=== PATIENT | male | born 1950 | race Caucasian/White ===

== ENCOUNTER 2021-11-06 04:07 | Outpatient (CLI) | payer MEDICARE, SELFPAY ==
[2021-11-06 13:03] LABS: Source Nasal/Nares
[2021-11-06 18:41] LABS: COVID-19 PCR Positive (Negative)
== END 2021-11-06 04:08 | disposition home or self-care (01) ==
LOC: LBO 04:07
PROVIDERS: PCP Neuromusculoskeletal Medicine & OMM; Visit Provider Ophthalmology
DX: Z20.822 Contact with and (suspected) exposure to COVID-19 (principal)
CPT/HCPCS: 87635

== ENCOUNTER 2021-12-11 10:09 | Outpatient (CLI) | payer MEDICARE, SELFPAY ==
[2021-12-11 12:09] LABS: Source Nasal/Nares
[2021-12-11 14:55] LABS: COVID-19 PCR Negative (Negative)
== END 2021-12-11 10:10 | disposition home or self-care (01) ==
PROVIDERS: PCP Neuromusculoskeletal Medicine & OMM; Visit Provider Ophthalmology
DX: Z20.822 Contact with and (suspected) exposure to COVID-19 (principal)
CPT/HCPCS: 87635; U0005

== ENCOUNTER 2021-12-14 11:51 | Day surgery (SDC) | payer MEDICARE, SELFPAY ==
--- NOTE | 2021-12-14 11:57 | ANES.PREOP_ITS ---
General Info Date of Service Date Performed: 12/14/21 Height: 5 ft 7 in Weight: 72.575 kg Body Mass Index (BMI): 25.0 Surgical Procedure: Operation Date: 12/14/21 15:40 Proposed Procedure Side Surgeon p Cataract Extraction with IOL Implant w/Glaucoma Stent Right Casey Brar MD Meds Allergies and Home Medications Allergies Allergy/AdvReac Type Severity Reaction Status Date / Time No Known Allergies Allergy Unverified 12/10/21 12:22 Home Medication Medication Instructions Recorded amlodipine 10 mg tablet 10 mg PO DAILY 11/05/21 aspirin 81 mg capsule,delayed 81 mg PO DAILY 11/05/21 release dorzolamide 2 % eye drops 1 drp OPHTHALMIC (EYE) BID 11/05/21 latanoprost 0.005 % eye drops 1 drp OPHTHALMIC (EYE) HS 11/05/21 lisinopril 40 mg tablet 40 mg PO DAILY 11/05/21 metoprolol succinate 100 mg 100 mg PO DAILY 11/05/21 tablet,extended release 24 hr metronidazole 0.75 % topical gel 1 applic TOPICAL BID 11/05/21 simvastatin 20 mg tablet 20 mg PO HS 11/05/21 Current Visit Medications: Current Medications Generic Name Dose Route Start Last Admin Trade Name Freq PRN Reason Stop Dose Admin Acetaminophen 1,000 mg 12/14/21 06:00 Acetaminophen 500 Mg Tab PO Q4H PRN PRN Miscellaneous Medication 0 ml 12/14/21 06:00 Prednisolone 1%, Moxifloxacin 0.5%, Nepafenac 0.1% 5ml Btl OD DIRECTED [facility] Miscellaneous Medication 0 ml 12/14/21 06:00 Tropicam./Phenyleph. (1/2.5%) 5 Ml Btl OD DIRECTED [facility] Tetracaine HCl 0 ml 12/14/21 06:00 Tetracaine 0.5% 4 Ml Btl OD DIRECTED [facility] PFSH Active Problems Active Problems: Problem Status Onset Code Nuclear sclerotic cataract of right eye H25.11 Posterior subcapsular age-related cataract, right eye H25.041 Medical History Medical History (Updated 12/14/21 @ 12:34 by Nicole Robertson) COVID 11/06/21 Asymptomatic Essential hypertension Glaucoma History of postoperative nausea and vomiting Neuropathy due to type 2 diabetes mellitus Rosacea Medical History Comments:: Patient reports PONV in the past. Takes no diabetes medication. Surgical History Surgical History History of colonoscopy History of hernia repair Tobacco Smoking/Tobacco Use Status: Former Tobacco Use Alcohol Alcohol Intake: never Substance Use Substance use type: does not use Vital Signs and Lab Results Vital Signs Most Recent Vital Signs in EMR: Temp Pulse Resp BP Pulse Ox 36.3 C L 64 16 170/81 H 98 12/14/21 12:31 12/14/21 12:31 12/14/21 12:31 12/14/21 12:31 12/14/21 12:31 Lab Results Blood Type / Crossmatch: No Data to Display Complete Blood Count: No Data to Display Complete Metabolic Panel: No Data to Display Liver Function Panel: No Data to Display Coagulation Panel: No Data to Display Cardiac Panel: No Data to Display Arterial Blood Gas: No Data to Display Venous Blood Gas: No Data to Display Pancreas Panel: No Data to Display Thyroid Panel: No Data to Display Infectious Disease: Coronavirus (COVID-19)(PCR) Negative (Negative) 12/11/21 09:00 12/11/21 Coronavirus 2019 Source Nasal/Nares 12/11/21 09:00 12/11/21 Blood Cultures: No Data to Display Toxicology Panel: No Data to Display Anesthesia Assessment and Plan Anesthesia History Personal History: PONV Family History: No Family History of Anesthesia Complications Exercise Tolerance Exercise Tolerance: Metabolic Equivalents>4 Cardiac & Pulmonary Exam Cardiac Exam: Normal S1/S2 Heart Sounds Pulmonary Exam: Clear Bilateral Breath Sounds Implantable Cardiac Device Does patient have a Pacemaker or an ICD?: No Airway Exam Known Difficult Airway: No Mallampati Class: 3 Mouth Opening: Narrow (< 3cm) Thyromental Distance: Less than 3 cm Neck Range of Motion: Full ROM Neck Circumference: Normal Teeth Condition: Edentulous ASA Classification ASA Score: ASA 2 Emergency Case?: No NPO Status NPO Status: NPO Clears >2 hours, Solids >8 hours Anesthesia Plan Resuscitation Status: Full Code Anesthesia Technique: MAC Anesthesia Airway Planned: Natural Airway Monitors Used: Standard Monitors Preoperative Comments:: 71 yo male for cataract. Sig PMHx: HTN (amlodipine/lisinopril/metoprolol), neuropathy, former smoker. Plan: no mko.
[2021-12-14] MEDS: Tropicam./Phenyleph. (1/2.5%) 5 ML BTL OD ×3 (12:30→12:42)
[2021-12-14 12:31] VITALS: BP 170/81; PULSE 64; RESP 16; TEMP 36.3; O2SAT 98
[2021-12-14 13:03] VITALS: BMI 25.0
--- NOTE | 2021-12-14 13:44 | HPE_ITS ---
Assessment and Plan Assessment and plan (1) Nuclear sclerotic cataract of right eye: Status: Acute Assessment and plan: Assessment: Visually significant cataract of the right eye. Plan: Cataract extraction with lens implantation (2) Posterior subcapsular age-related cataract, right eye: Status: Acute Assessment and plan: Assessment: Visually significant cataract of the right eye. Plan: Cataract extraction with lens implantation (3) Primary open-angle glaucoma, right eye, severe stage: Status: Acute Assessment and plan: Primary open-angle glaucoma, right eye, severe stage, on 2 medications. Plan: Trabecular micro-bypass stent of the right eye at the time of cataract surgery. History of Present Illness History of Present Illness Chief Complaint: Progressive decreased vision, right eye, as well as glaucoma right eye Narrative: The patient is a 71-year-old male with history of progressive decreased vision in both eyes, right eye worse than left. He also has a history of severe stage primary open-angle glaucoma, currently managed on 2 topical medications. He has a significant nuclear/posterior subcapsular cataract in the right eye with visual acuity of 20/100. The option of cataract surgery was offered to the patient and he wished to proceed. Review of Systems All systems reviewed & are unremarkable except as noted in HPI and below PFSH All Active Problems (Updated 12/14/21 @ 13:50 by Casey Brar MD) Primary open-angle glaucoma, right eye, severe stage (Acute) Nuclear sclerotic cataract of right eye (Acute) Posterior subcapsular age-related cataract, right eye (Acute) Medical History COVID 11/06/21 Asymptomatic Essential hypertension Glaucoma History of postoperative nausea and vomiting Neuropathy due to type 2 diabetes mellitus Rosacea Surgical History History of colonoscopy History of hernia repair Social History Smoking/Tobacco Use Status: Former Tobacco Use Quit Date: 10/10/13 Smoking risk assessment performed?: Yes Alcohol Intake: never Substance use type: does not use Do you feel safe at home: Yes Do you feel safe in your relationship?: Yes Meds Allergies and Home Medications Allergies Allergy/AdvReac Type Severity Reaction Status Date / Time No Known Allergies Allergy Unverified 12/10/21 12:22 Home Medications Medication Instructions Recorded Confirmed Type amlodipine 10 mg tablet 10 mg PO DAILY 11/05/21 12/14/21 History aspirin 81 mg capsule,delayed 81 mg PO DAILY 11/05/21 12/14/21 History release dorzolamide 2 % eye drops 1 drp OPHTHALMIC (EYE) BID 11/05/21 12/14/21 History latanoprost 0.005 % eye drops 1 drp OPHTHALMIC (EYE) HS 11/05/21 12/14/21 History lisinopril 40 mg tablet 40 mg PO DAILY 11/05/21 12/14/21 History metoprolol succinate 100 mg 100 mg PO DAILY 11/05/21 12/14/21 History tablet,extended release 24 hr metronidazole 0.75 % topical gel 1 applic TOPICAL BID 11/05/21 12/14/21 History simvastatin 20 mg tablet 20 mg PO HS 11/05/21 12/14/21 History Exam Eyes Other: Corrected visual acuity is 20/100 right eye, 20/20 left eye. Intraocular pressure is 12 right eye, 10 left eye. Extraocular motility is normal. Slit- lamp examination reveals moderate bilateral nuclear cataracts with 1-2+ posterior subcapsular cataract in the right eye, 1+ posterior subcapsular cataract in the left eye. Pupils dilated to 4.5 mm OU. Disc cupping is 0.85 OU with normal vessels, macula, peripheral retina and vitreous. Resp Auscultation: clear to auscultation bilaterally Cardio Rate: regular rate Rhythm: regular rhythm Results Last Vital Signs Temp 36.3 C L 12/14/21 12:31 Pulse 64 12/14/21 12:31 Resp 16 12/14/21 12:31 BP 170/81 H 12/14/21 12:31 Pulse Ox 98 12/14/21 12:31
[2021-12-14] MEDS: Tetracaine 0.5% 4 ML BTL OD (13:53)
[2021-12-14] MEDS: Duovisc Viscoelastic System EACH 1 EACH (14:01)
[2021-12-14] MEDS: Balanced Salt Soln.-PLUS 500 ML BAG (14:01)
[2021-12-14] MEDS: Lidocaine 2% Jelly 6 ML SYR (14:02)
[2021-12-14] MEDS: Povidone-Iodine Ophth 30 ML BTL (14:03)
[2021-12-14 14:26] VITALS: BP 177/87; PULSE 77; RESP 16; TEMP 36.6; O2SAT 96
--- NOTE | 2021-12-14 14:29 | W.PM.DSUDISC ---
Discharge Plan Disposition Patient Disposition: HOME Condition: Good Discharge Details Attending Provider: Casey Brar Primary Care Provider: [facility] Meds and New Rx's Prescriptions: No Action latanoprost 0.005 % drops 1 drp ophthalmic (eye) HS 0RF Label Comments: INSTILL 1 DROP IN BOTH EYES EVERY DAY AT BEDTIME metoprolol succinate 100 mg tablet extended release 24 hr 100 mg PO DAILY 0RF Label Comments: TAKE 1 TABLET BY MOUTH EVERY DAY aspirin 81 mg Capsule,Delayed Release(Dr/Ec) 81 mg PO DAILY 0RF amlodipine 10 mg tablet 10 mg PO DAILY 0RF Label Comments: TAKE 1 TABLET BY MOUTH EVERY DAY simvastatin 20 mg tablet 20 mg PO HS 0RF Label Comments: TAKE 1 TABLET BY MOUTH AT BEDTIME lisinopril 40 mg tablet 40 mg PO DAILY 0RF Label Comments: TAKE 1 TABLET BY MOUTH EVERY DAY IN THE MORNING metronidazole 0.75 % gel 1 applic TOPICAL BID 0RF Label Comments: APPLY TOPICALLY TO THE AFFECTED AREA TWICE DAILY FOR ACNE ROSACEA dorzolamide 2 % drops 1 drp ophthalmic (eye) BID 0RF Label Comments: INSTILL 1 DROP IN BOTH EYES TWICE DAILY Discharge Instructions Stand Alone Forms: Post-op Topical Cataract, Press Ganey (DSU) Discharge Orders Discharge Orders: Discharge Order (Routine); Ordered 12/14/21 Ordered By: Casey Brar DS: Diagnosis Discharge Diagnosis (1) Nuclear sclerotic cataract of right eye: Status: Resolved (2) Posterior subcapsular age-related cataract, right eye: Status: Resolved (3) Primary open-angle glaucoma, right eye, severe stage: Status: Chronic
--- NOTE | 2021-12-14 14:29 | W.ANESPOSTOP ---
Postoperative Evaluation Date, Time and Location Date Performed: 12/14/21 Time Performed: 14:29 Patient Location: Day Surgery Unit Vital Signs Most Recent Imported Vital Signs: Most Recent Vital Signs Temp Pulse Resp BP Pulse Ox 36.3 C L 64 16 170/81 H 98 12/14/21 12:31 12/14/21 12:31 12/14/21 12:31 12/14/21 12:31 12/14/21 12:31 Most Recent Manually Entered Vital Signs: Adult Blood Pressure: 177/87 Heart Rate: 71 Respirations: 12 Oxygen Saturation (%): 99 Temperature (C): 36.3 C Pain Score (0-10 Scale): 0 Pain Score Most Recent Pain Score: Most Recent Pain Score Pain Level 0 12/14/21 12:31 Assessment Mental Status: Awake (Alert & Oriented to Patient Baseline) Airway and Respiratory Function: Patent airway with normal (patient baseline) respiratory exam Cardiovascular Function: Hemodynamically Stable Hydration Status: Adequately Hydrated Nausea & Vomiting: No Nausea or Vomiting Pain: Pt. Denies Any Pain Peripheral Nerve Block: Patient did not receive a nerve block
[2021-12-14 14:30] VITALS: BP 177/87; PULSE 71; RESP 12; TEMPC 36.3; O2SAT 99
--- NOTE | 2021-12-14 14:30 | W.PM.OP ---
Date of service: 12/14/21 Time of Service: 14:30 Operative Note Operative Note DATE OF PROCEDURE: 12/14/21 PRE-OP DIAGNOSIS: Nuclear/posterior subcapsular cataract, right eye Primary open-angle glaucoma, right eye, severe stage POST-OP DIAGNOSIS: same PROCEDURE: 1. Cataract extraction using phacoemulsification with intraocular lens implant, right eye 2. Insertion of multiple anterior segment aqueous drainage devices (Glaukos iStent inject x 2) into trabecular meshwork, right eye SURGEON: Casey Brar ANESTHESIA TYPE: Local By Surgeon and MAC Refer to Anesthesia Record PATHOLOGY: none sent COMPLICATIONS: None Patient was transported to: same day Patient's condition: stable Implants: 1. [employer] / [employer] Tecnis ZCB00 intraocular lens 2. Glaukos iStent inject trabecular micro-bypass stent x 2 Indications: 1. Progressive decreased vision due to cataract, right eye 2. Primary open angle glaucoma, right eye Procedure Description: CATARACT SURGERY OPERATIVE REPORT PREOPERATIVE DIAGNOSIS: Nuclear/posterior subcapsular cataract, right eye Primary open-angle glaucoma, right eye, severe stage POSTOPERATIVE DIAGNOSIS: Same OPERATION: 1. Cataract extraction using phacoemulsification with posterior chamber intraocular lens implant, right eye. 2. Insertion of multiple anterior segment aqueous drainage devices (Glaukos iStent inject x 2) into trabecular meshwork, right eye IOL: IOL Field Care Advocate/Model: [employer] / VARSHA Tecnis ZCB00 IOL Power: + 16.0 diopters IOL Serial Number: [id number] Optic Diameter: 6.0mm Haptic/Overall Diameter: 13.0mm PHACO INFO: Antonio [employer] Vision System with OZil and Active [employer]uidics Cumulative Dispersed Energy (CDE): 14.63 seconds TRABECULAR MICRO-BYPASS STENT INFO: Glaukos iStent inject x 2 Reference Number: [id number] Serial Number: [id number] SURGEON: Casey Brar MD, MONTSE ANESTHESIA: Monitored Anesthesia Care (MAC), with local sub-tenon's anesthetic infiltration COMPLICATIONS: None SPECIMENS: None INDICATIONS FOR PROCEDURE: The patient is a 71-year-old gentleman with history of progressive decreased vision in his right eye secondary to the development of nuclear/posterior subcapsular cataract. He also has severe stage primary open-angle glaucoma, currently managed on 2 medications. The option of cataract surgery was offered to the patient and he wished to proceed. In addition, he is undergoing glaucoma stent implantation to help manage his intraocular pressure. PROCEDURE: The correct surgical eye was identified and marked as the right eye and the pupil was dilated in the preoperative area using mydriatics and cycloplegics. The dilated pupil size was 6.0 mm. He elected to proceed without oral sedation. The patient was brought to the operating room where cardiopulmonary monitoring was instituted and surgical time-out was performed, confirming the correct operative eye and IOL power. Topical anesthesia was administered and ophthalmic povidone-iodine 5% was instilled into the conjunctival fornices. Lidocaine gel was applied to the cornea and the tawanda-ocular area was prepped with Betadine 10% solution and draped in the usual sterile fashion for intraocular surgery, including an aperture drape. A Tegaderm transparent film dressing was cut in half and used to cover the lashes and lid margins. Care was taken to sequester the lashes and lid margins under the Tegaderm dressing. A lid speculum was placed between the lids of the operative eye and the Antonio [employer] operating microscope was maneuvered into position. Sharon scissors were then used to make a conjunctival buttonhole approximately 6mm posterior to the limbus in the inferonasal quadrant. Blunt dissection was carried out to expose bare sclera, and a blunt-tipped sub-tenon?s anesthesia cannula was introduced and passed posteriorly along the globe where non-preserved plain lidocaine was injected into posterior sub-Tenon?s space. A sideport knife was used to make a paracentesis port inferiortemporally. Intraocular phenylephrine/lidocaine was injected into the anterior chamber. The anterior chamber was then filled with viscoelastic. A 2.4mm keratome knife was used to create a half-thickness groove at the limbus and then to construct a three-plane near-clear corneal tunnel extending 2.0mm into clear cornea in the superiortemporal position. . A flap was raised on the anterior capsule and capsulorhexis forceps were used to complete a continuous curvilinear capsulorhexis of 5.0 mm. Balanced salt solution was then used to perform cortical cleaving hydrodissection and nuclear hydrodelineation until the lens could be freely rotated within the capsular bag. The lens nucleus was then disassembled and removed within the capsular bag and iris plane using phacoemulsification. Residual cortical material was removed using the 45-degree angled silicone I/A tip with 0.3mm port. The posterior capsule was carefully polished to remove as much residual lens epithelial cells as safely possible. The capsular bag was then inflated and the anterior chamber deepened with viscoelastic. The lens implant described above was inserted into the capsular bag using the VARSHA [place] Injector. A Kuglen hook was used to dial the IOL into position. The anterior chamber was then slightly over-filled with viscoelastic. The microsope and the patient's head were tilted into the ideal position for viewing of the anterior chamber angle. Viscoelastic was placed on the cornea followed by a surgical gonionlens, and the anterior chamber angle landmarks were identified. The [facility] iStent inject handpiece was introduced into the anterior chamber and the insertion sleeve was retracted once the injector was distal to the pupillary margin. The trocar was advanced through the central portion of the trabecular meshwork and into the back wall of Schlemm's canal in the inferonasal quadrant, with care taken to ensure the micro-insertion tube was perpendicular to the trabecular meshwork. The trabecular meshwork was lightly dimpled and the stent was injected without difficulty. The same procedure was then performed in the superiornasal quadrant. Both stents were then examined and noted to be in good position within the trabecular meshwork.The microscope and the patients head were returned to the normal coaxial position. Viscoelatic was then removed from the anterior chamber using the I/A handpiece. The lens implant was noted to center nicely within the capsular bag. The incisions were stromally hydrated, and the anterior chamber was reformed using BSS. Then 0.4cc of moxifloxacin 1.5mg/ml were injected into the capsular bag and anterior chamber. The incisions were checked with a Weck spear and found to be secure. Several drops of ophthalmic povidone-iodine 5% were then applied to the eye followed by two drops of Imprimis combination prednisolone/moxifloxacin/nepafenac solution. The drapes were removed and a clear plastic protective eye shield was placed over the eye. The patient was then returned to [facility] Day Surgery in stable condition.
== END 2021-12-14 14:47 | disposition home or self-care (01) ==
PROVIDERS: PCP Neuromusculoskeletal Medicine & OMM; Visit Provider Ophthalmology
PROC: (CPT 66984; principal; 2021-12-14 15:30)
DX: H25.041 Posterior subcapsular polar age-related cataract, right eye (principal); H40.1113 Primary open-angle glaucoma, right eye, severe stage; I10 Essential (primary) hypertension; E11.42 Type 2 diabetes mellitus with diabetic polyneuropathy
CPT/HCPCS: 66984; 66991; V2632; C1783

== ENCOUNTER 2021-12-28 09:47 | Day surgery (SDC) | payer MEDICARE, SELFPAY ==
--- NOTE | 2021-12-28 07:07 | HPE_ITS ---
Assessment and Plan Assessment and plan (1) Nuclear sclerotic cataract of left eye: Status: Acute Assessment and plan: Assessment: Visually significant cataract of the left eye. Plan: Cataract extraction with lens implantation of the left eye (2) Posterior subcapsular age-related cataract of left eye: Status: Acute Assessment and plan: Assessment: Visually significant cataract of the left eye. Plan: Cataract extraction with lens implantation of the left eye (3) Primary open angle glaucoma of left eye, severe stage: Status: Acute Assessment and plan: Assessment: Primary open-angle glaucoma, left eye, severe stage, controlled on 2 topical medications. Plan: Trabecular microbypass glaucoma stent of the left eye at the time of cataract surgery History of Present Illness History of Present Illness Chief Complaint: Progressive decreased vision, left eye Narrative: The patient is a 71-year-old male with history of severe stage primary open- angle glaucoma in both eyes. He developed symptomatic bilateral nuclear and posterior subcapsular cataract. He was significantly symptomatic symptomatic that he desired cataract surgery and attempt to improve and maximize his vision. He has undergone cataract surgery in the right eye on 12/14/2021 with implantation of glaucoma stent as well. Postoperatively, uncorrected visual acuity has improved to 20/30 in the right eye. He now presents for cataract surgery in the left eye. In addition, the option of glaucoma stent procedure in the left eye was offered as well and he wished to proceed with that. Glaucoma is currently managed on 2 topical medications. 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 mellitus Rosacea Surgical History (Updated 12/28/21 @ 10:06 by Nicole Robertson) History of colonoscopy History of hernia repair Hx of cataract removal with insertion of prosthetic lens Social History Smoking/Tobacco Use Status: Former Tobacco Use Quit Date: 10/10/13 Smoking risk assessment performed?: Yes Alcohol Intake: never Substance use type: does not use Do you feel safe at home: Yes Do you feel safe in your relationship?: Yes Meds Allergies and Home Medications Allergies Allergy/AdvReac Type Severity Reaction Status Date / Time No Known Allergies Allergy Unverified 12/28/21 10:07 Home Medications Medication Instructions Recorded Confirmed Type amlodipine 10 mg tablet 10 mg PO DAILY 11/05/21 12/28/21 History aspirin 81 mg capsule,delayed 81 mg PO DAILY 11/05/21 12/28/21 History release dorzolamide 2 % eye drops 1 drp OPHTHALMIC (EYE) BID 11/05/21 12/28/21 History latanoprost 0.005 % eye drops 1 drp OPHTHALMIC (EYE) HS 11/05/21 12/28/21 History lisinopril 40 mg tablet 40 mg PO DAILY 11/05/21 12/28/21 History metoprolol succinate 100 mg 100 mg PO DAILY 11/05/21 12/28/21 History tablet,extended release 24 hr metronidazole 0.75 % topical gel 1 applic TOPICAL BID 11/05/21 12/25/21 History simvastatin 20 mg tablet 20 mg PO HS 11/05/21 12/28/21 History Exam Eyes Eyelids: eyelids normal Sclera: sclerae normal Cornea: corneas normal Pupils: PERRL EOM: EOM intact bilaterally Other: Uncorrected visual acuity measures 20/30 in the right eye, 20/60 in the left eye. Intraocular pressure is 12 right eye, 16 left eye. Extraocular motility is normal. Corneas are thin at less than 500 ?m in thickness. In the right eye there is a well-positioned PCIOL with clear posterior capsule. In the left eye, a 1+ posterior subcapsular cataract is present. Pupils dilate to 4.5 mm OU. Fundus examination reveals cup-to-disc ratio of 0.85 OU with normal vessels, macula, peripheral retina and vitreous. Resp Auscultation: clear to auscultation bilaterally Cardio Rate: regular rate Rhythm: regular rhythm
[2021-12-28 10:11] VITALS: BP 161/91; PULSE 69; RESP 16; TEMP 36.2; O2SAT 99
[2021-12-28] MEDS: Tropicam./Phenyleph. (1/2.5%) 5 ML BTL OS ×3 (10:11→10:21)
[2021-12-28 10:27] VITALS: BMI 27.1
--- NOTE | 2021-12-28 10:27 | W.ANESPRE ---
General Info Date of Service Date Performed: 12/28/21 Height: 5 ft 7 in Weight: 78.7 kg Body Mass Index (BMI): 27.1 Surgical Procedure: Operation Date: 12/28/21 12:40 Proposed Procedure Side Surgeon p Cataract Extraction with IOL Implant w/Glaucoma Stent Left Casey Brar MD Meds Allergies and Home Medications Allergies Allergy/AdvReac Type Severity Reaction Status Date / Time No Known Allergies Allergy Unverified 12/28/21 10:07 Home Medication Medication Instructions Recorded amlodipine 10 mg tablet 10 mg PO DAILY 11/05/21 aspirin 81 mg capsule,delayed 81 mg PO DAILY 11/05/21 release dorzolamide 2 % eye drops 1 drp OPHTHALMIC (EYE) BID 11/05/21 latanoprost 0.005 % eye drops 1 drp OPHTHALMIC (EYE) HS 11/05/21 lisinopril 40 mg tablet 40 mg PO DAILY 11/05/21 metoprolol succinate 100 mg 100 mg PO DAILY 11/05/21 tablet,extended release 24 hr metronidazole 0.75 % topical gel 1 applic TOPICAL BID 11/05/21 simvastatin 20 mg tablet 20 mg PO HS 11/05/21 Current Visit Medications: Current Medications Generic Name Dose Route Start Last Admin Trade Name Freq PRN Reason Stop Dose Admin Acetaminophen 1,000 mg 12/28/21 06:00 Acetaminophen 500 Mg Tab PO Q4H PRN PRN Miscellaneous Medication 0 ml 12/28/21 06:00 Prednisolone 1%, Moxifloxacin 0.5%, Nepafenac 0.1% 5ml Btl OS DIRECTED ELIGIO Miscellaneous Medication 0 ml 12/28/21 06:00 12/28/21 10:21 Tropicam./Phenyleph. (1/2.5%) 5 Ml Btl OS 1 drp DIRECTED ELIGIO Administration Tetracaine HCl 0 ml 12/28/21 06:00 Tetracaine 0.5% 4 Ml Btl OS DIRECTED ELIGIO PFSH Active Problems Active Problems: Problem Status Onset Code Nuclear sclerotic cataract of right eye H25.11 Posterior subcapsular age-related cataract, right eye H25.041 Primary open-angle glaucoma, right eye, severe stage H40.1113 Nuclear sclerotic cataract of left eye H25.12 Posterior subcapsular age-related cataract of left eye H25.042 Primary open angle glaucoma of left eye, severe stage H40.1123 Medical History Medical History COVID 11/06/21 Asymptomatic Essential hypertension Glaucoma History of postoperative nausea and vomiting Neuropathy due to type 2 diabetes mellitus Rosacea Medical History Comments:: Patient reports PONV in the past. Takes no diabetes medication. Surgical History Surgical History (Updated 12/28/21 @ 10:06 by Nicole Robertson) History of colonoscopy History of hernia repair Hx of cataract removal with insertion of prosthetic lens Tobacco Smoking/Tobacco Use Status: Former Tobacco Use Alcohol Alcohol Intake: never Substance Use Substance use type: does not use Vital Signs and Lab Results Vital Signs Most Recent Vital Signs in EMR: Most Recent Vital Signs Temp Pulse Resp BP Pulse Ox 36.2 C L 69 16 161/91 H 99 12/28/21 10:11 12/28/21 10:11 12/28/21 10:11 12/28/21 10:11 12/28/21 10:11 Lab Results Blood Type / Crossmatch: No Data to Display Complete Blood Count: No Data to Display Complete Metabolic Panel: No Data to Display Liver Function Panel: No Data to Display Coagulation Panel: No Data to Display Cardiac Panel: No Data to Display Arterial Blood Gas: No Data to Display Venous Blood Gas: No Data to Display Pancreas Panel: No Data to Display Thyroid Panel: No Data to Display Infectious Disease: Coronavirus (COVID-19)(PCR) Negative (Negative) 12/11/21 09:00 12/11/21 Coronavirus 2019 Source Nasal/Nares 12/11/21 09:00 12/11/21 Blood Cultures: No Data to Display Toxicology Panel: No Data to Display Anesthesia Assessment and Plan Anesthesia History Personal History: PONV Family History: No Family History of Anesthesia Complications Exercise Tolerance Exercise Tolerance: Metabolic Equivalents>4 Cardiac & Pulmonary Exam Cardiac Exam: Normal S1/S2 Heart Sounds Pulmonary Exam: Clear Bilateral Breath Sounds Implantable Cardiac Device Does patient have a Pacemaker or an ICD?: No Airway Exam Known Difficult Airway: No Mallampati Class: 3 Mouth Opening: Narrow (< 3cm) Thyromental Distance: Less than 3 cm Neck Range of Motion: Full ROM Neck Circumference: Normal Teeth Condition: Edentulous ASA Classification ASA Score: ASA 2 Emergency Case?: No NPO Status NPO Status: NPO Clears >2 hours, Solids >8 hours Anesthesia Plan Resuscitation Status: Full Code Anesthesia Technique: MAC Anesthesia Airway Planned: Natural Airway Monitors Used: Standard Monitors Preoperative Comments:: 71 yo male for cataract. Sig PMHx: HTN (amlodipine/lisinopril/metoprolol), neuropathy, former smoker. Plan: no mko.
[2021-12-28] MEDS: Tetracaine 0.5% 4 ML BTL OS (11:04)
[2021-12-28] MEDS: Duovisc Viscoelastic System EACH 1 EACH (11:13)
[2021-12-28] MEDS: Balanced Salt Soln.-PLUS 500 ML BAG (11:13)
[2021-12-28] MEDS: Lidocaine 2% Jelly 6 ML SYR (11:14)
[2021-12-28] MEDS: Povidone-Iodine Ophth 30 ML BTL (11:15)
--- NOTE | 2021-12-28 11:43 | W.PM.DSUDISC ---
Discharge Plan Disposition Patient Disposition: HOME Condition: Good Discharge Details Attending Provider: Casey Brar Primary Care Provider: Burton Villa Thayne Meds and New Rx's Prescriptions: No Action latanoprost 0.005 % drops 1 drp ophthalmic (eye) HS 0RF Label Comments: INSTILL 1 DROP IN BOTH EYES EVERY DAY AT BEDTIME metoprolol succinate 100 mg tablet extended release 24 hr 100 mg PO DAILY 0RF Label Comments: TAKE 1 TABLET BY MOUTH EVERY DAY aspirin 81 mg Capsule,Delayed Release(Dr/Ec) 81 mg PO DAILY 0RF amlodipine 10 mg tablet 10 mg PO DAILY 0RF Label Comments: TAKE 1 TABLET BY MOUTH EVERY DAY simvastatin 20 mg tablet 20 mg PO HS 0RF Label Comments: TAKE 1 TABLET BY MOUTH AT BEDTIME lisinopril 40 mg tablet 40 mg PO DAILY 0RF Label Comments: TAKE 1 TABLET BY MOUTH EVERY DAY IN THE MORNING metronidazole 0.75 % gel 1 applic TOPICAL BID 0RF Label Comments: APPLY TOPICALLY TO THE AFFECTED AREA TWICE DAILY FOR ACNE ROSACEA dorzolamide 2 % drops 1 drp ophthalmic (eye) BID 0RF Label Comments: INSTILL 1 DROP IN BOTH EYES TWICE DAILY Discharge Instructions Stand Alone Forms: Post-op Topical Cataract, Press Ganey (DSU) Discharge Orders Discharge Orders: Discharge Order (Routine); Ordered 12/28/21 Ordered By: Casey Brar DS: Diagnosis Discharge Diagnosis (1) Nuclear sclerotic cataract of left eye: Status: Resolved (2) Posterior subcapsular age-related cataract of left eye: Status: Resolved (3) Primary open angle glaucoma of left eye, severe stage: Status: Chronic
--- NOTE | 2021-12-28 11:44 | ROE_ITS ---
Date of service: 12/28/21 Time of Service: 11:44 Operative Note Operative Note DATE OF PROCEDURE: 12/28/21 Nuclear/posterior subcapsular cataract, left eye Primary open-angle glaucoma, left eye, severe stage PROCEDURE: 1. Cataract extraction using phacoemulsification with intraocular lens implant, left eye 2. Insertion of multiple anterior segment aqueous drainage devices (Glaukos iStent inject x 1) into trabecular meshwork, left eye SURGEON: Casey Brar ANESTHESIA TYPE: Local By Surgeon and MAC Refer to Anesthesia Record ESTIMATED BLOOD LOSS: 0 PATHOLOGY: none sent COMPLICATIONS: None Patient was transported to: same day Patient's condition: stable Implants: 1. [employer] / [employer] Tecnis ZCB00 intraocular lens 2. Glaukos iStent inject trabecular micro-bypass stent x 1 Indications: 1. Progressive decreased vision due to cataract, left eye 2. Primary open angle glaucoma, left eye Procedure Description: CATARACT SURGERY OPERATIVE REPORT PREOPERATIVE DIAGNOSIS: Nuclear/posterior subcapsular cataract, left eye Primary open-angle glaucoma, left eye, severe stage POSTOPERATIVE DIAGNOSIS: Same OPERATION: 1. Cataract extraction using phacoemulsification with posterior chamber intraocular lens implant, left eye. 2. Insertion of multiple anterior segment aqueous drainage devices (Glaukos iS tent inject x 1) into trabecular meshwork, left eye IOL: IOL Manager Field Service/Model: [employer] / VARSHA Tecnis ZCB00 IOL Power: + 16.5 diopters IOL Serial Number: [id number] Optic Diameter: 6.0mm Haptic/Overall Diameter: 13.0mm PHACO INFO: Antonio [employer] Vision System with OZil and [employer] Cumulative Dispersed Energy (CDE): 8.26 seconds TRABECULAR MICRO-BYPASS STENT INFO: Glaukos iStent inject x 2 Reference Number: [id number] Serial Number: [id number] SURGEON: Casey Brar MD, MONTSE ANESTHESIA: Monitored Anesthesia Care (MAC), with local sub-tenon's anesthetic infiltration COMPLICATIONS: None SPECIMENS: None INDICATIONS FOR PROCEDURE: The patient is a 71-year-old gentleman with history of severe stage open-angle glaucoma in both eyes who has developed nuclear/posterior subcapsular cataract in both eyes. He has already undergone cataract surgery in the right eye with implantation of glaucoma microtrabecular bypass stent. He now presents for cat aract surgery with stent implantation of the left eye. PROCEDURE: The correct surgical eye was identified and marked as the left eye and the pupil was dilated in the preoperative area using mydriatics and cycloplegics. The dilated pupil size was 5.0 mm. He elected to proceed without sedation. patient was brought to the operating room where cardiopulmonary monitoring was instituted and surgical time-out was performed, confirming the correct operative eye and IOL power. Topical anesthesia was administered and ophthalmic povidone-iodine 5% was instilled into the conjunctival fornices. Lidocaine gel was applied to the cornea and the tawanda-ocular area was prepped with Betadine 10% solution and draped in the usual sterile fashion for intraocular surgery, including an aperture drape. A Tegaderm transparent film dressing was cut in half and used to cover the lashes and lid margins. Care was taken to sequester the lashes and lid margins under the Tegaderm dressing. A lid speculum was placed between the lids of the operative eye and the Antonio [employer] operating microscope was maneuvered into position. Sharon scissors were then used to make a conjunctival buttonhole approximately 6mm posterior to the limbus in the inferonasal quadrant. Blunt dissection was carried out to expose bare sclera, and a blunt-tipped sub-tenon?s anesthesia cannula was introduced and passed posteriorly along the globe where non- preserved plain lidocaine was injected into posterior sub-Tenon?s space. A sideport knife was used to make a paracentesis port superior/superiortemporally. Intraocular phenylephrine/lidocaine was injected into the anterior chamber. The anterior chamber was then filled with viscoelastic. A 2.4mm keratome knife was used to create a half-thickness groove at the limbus and then to construct a three-plane near-clear corneal tunnel extending 2.0mm into clear cornea in the temporal position. . A flap was raised on the anterior capsule and capsulorhexis forceps were used to complete a continuous curvilinear capsulorhexis of 5.0 mm. Balanced salt solution was then used to perform cortical cleaving hydrodissection and nuclear hydrodelineation until the lens could be freely rotated within the capsular bag. The lens nucleus was then disassembled and removed within the capsular bag and iris plane using phacoemulsification. Residual cortical material was removed using the 45-degree angled silicone I/A tip with 0.3mm port. The posterior capsule was carefully polished to remove as much residual lens epithelial cells as safely possible. The capsular bag was then inflated and the anterior chamber deepened with viscoelastic. The lens implant described above was inserted into the capsular bag using the VARSHA [place] Injector. A Kuglen hook was used to dial the IOL into position. The anterior chamber was then slightly over-filled with viscoelastic. The microsope and the patient's head were tilted into the ideal position for view ing of the anterior chamber angle. Viscoelastic was placed on the cornea followed by a surgical gonionlens, and the anterior chamber angle landmarks were identified. The [employer] iStent inject handpiece was introduced into the anterior chamber and the insertion sleeve was retracted once the injector was distal to the pupillary margin. The trocar was advanced through the central portion of the trabecular meshwork and into the back wall of Schlemm's canal in the superiornasal quadrant, with care taken to ensure the micro-insertion tube was perpendicular to the trabecular meshwork. The trabecular meshwork was lightly dimpled and the actuator button was depressed but the stent failed to deploy. A second attempt was made and the stent deployed without difficulty, but with s ignificant hemorhage into the anterior chamber angle. Additional Healon was injected to clear the view and a second stent was attempted but again failed to deploy completely. The stent was recannulated with the trocar and a final attempt was made. The stent was not fully embedded into the trabecular meshwork, so the viscoelastic tip was used to attempt to fully embed the stent, which was unsuccessful. Capsule forceps were then used to remove the stent from the eye. . The microscope and the patients head were returned to the normal coaxial position. Viscoelatic was then removed from the anterior chamber using the I/A handpiece. The lens implant was noted to center nicely within the capsular bag. The incisions were stromally hydrated, and the anterior chamber was reformed using BSS. Then 0.5cc of moxifloxacin 1.0mg/ml were injected into the capsular bag and anterior chamber. The incisions were checked with a Weck spear and found to be secure. Several drops of ophthalmic povidone-iodine 5% were then applied to the eye followed by two drops of Imprimis combination prednisolone/moxifloxacin/nepafenac solution. The drapes were removed and a clear plastic protective eye shield was placed over the eye. The patient was then returned to Same Day Surgery in stable condition.
--- NOTE | 2021-12-28 11:44 | W.ANESPOSTOP ---
Postoperative Evaluation Date, Time and Location Date Performed: 12/28/21 Time Performed: 11:44 Patient Location: Day Surgery Unit Vital Signs Most Recent Imported Vital Signs: Most Recent Vital Signs Temp Pulse Resp BP Pulse Ox 36.2 C L 69 16 161/91 H 99 12/28/21 10:11 12/28/21 10:11 12/28/21 10:11 12/28/21 10:11 12/28/21 10:11 Most Recent Manually Entered Vital Signs: Adult Blood Pressure: 128/72 Heart Rate: 70 Respirations: 12 Oxygen Saturation (%): 98 Temperature (C): 36.3 C Pain Score (0-10 Scale): 0 Pain Score Most Recent Pain Score: Most Recent Pain Score Pain Level 0 12/28/21 10:11 Assessment Mental Status: Awake (Alert & Oriented to Patient Baseline) Airway and Respiratory Function: Patent airway with normal (patient baseline) respiratory exam Cardiovascular Function: Hemodynamically Stable Hydration Status: Adequately Hydrated Nausea & Vomiting: No Nausea or Vomiting Pain: Pt. Denies Any Pain Peripheral Nerve Block: Patient did not receive a nerve block
[2021-12-28 11:45] VITALS: BP 128/72; PULSE 70; RESP 12; TEMPC 36.3; O2SAT 98
[2021-12-28 11:52] VITALS: BP 128/73; PULSE 71; RESP 18; TEMP 36.2; O2SAT 97
== END 2021-12-28 12:10 | disposition home or self-care (01) ==
PROVIDERS: PCP Neuromusculoskeletal Medicine & OMM; Visit Provider Ophthalmology
PROC: (CPT 66984; principal; 2021-12-28 12:30)
DX: H25.042 Posterior subcapsular polar age-related cataract, left eye (principal); H40.1123 Primary open-angle glaucoma, left eye, severe stage
CPT/HCPCS: 66984; 66991; V2632; C1783